=== PATIENT | male | born 1960 | race Caucasian/White ===

== ENCOUNTER 2025-10-07 23:29 | Emergency (ER) | payer SELFPAY ==
[2025-10-08] MEDS ORDERED: Sodium Chloride 0.9% 10 ML Syringe FLUSH PRN (00:44)
== END 2025-10-08 01:15 | disposition left against medical advice (07) ==
LOC: JD.ED 23:29
DX: Z53.21 Procedure and treatment not carried out due to patient leaving prior to being seen by health care provider (principal)